=== PATIENT | female | born 1985 | race Caucasian/White ===

== ENCOUNTER 2017-07-06 12:06 | Day surgery (SDC) | payer OTHER, MEDICAID ==
[~2017-07-06 12:06] MED LIST: ATROPINE 1 MG/10 ML SYRINGE IV; DIPHENHYDRAMINE 50 MG INJ IV; EPHEDrine SULFATE 50 MG/5 ML SYG IV; FENTAnyl 50 MCG/ML VIAL IV; HYDROmorphONE (0.2 MG/ML) 10ML SYG IV; LABETALOL HCL 20MG INJ IV; MEPERIDINE 25 MG INJ IV; MIDAZOLAM 1 MG/ML 2 ML INJ IV; ONDANSETRON 4 MG INJ IV; OXYCODONE/ACETAMINOPHEN (5/325) TAB PO; hydrALAzine 20 MG INJ IV; morphine (1 MG/ML) 10ML SYRINGE IV
[2017-07-06] MEDS ORDERED: ROCURONIUM 50 MG INJ (14:25)
[2017-07-06] MEDS ORDERED: NEOSTIGMINE 3 MG/3 ML SYRINGE (14:25)
[2017-07-06] MEDS ORDERED: PROPOFOL 20 ML (14:25)
[2017-07-06] MEDS ORDERED: GLYCOPYRROLATE 1 MG INJ (14:25)
[2017-07-06] MEDS ORDERED: LIDOCAINE 2% (SDV) 5 ML INJ (14:25)
[2017-07-06] MEDS ORDERED: MIDAZOLAM 1 MG/ML 2 ML INJ (14:26)
[2017-07-06] MEDS ORDERED: FENTAnyl 50 MCG/ML VIAL (14:26)
[2017-07-06] MEDS ORDERED: ONDANSETRON 4 MG INJ (14:29)
[2017-07-06] MEDS ORDERED: CEFAZOLIN 1 GM INJ (14:54)
[2017-07-06] MEDS: BUPIVACAINE 0.5% (SDV) 30 ML INJ (15:31)
[2017-07-06] MEDS: OXYCODONE/ACETAMINOPHEN (5/325) TAB PO (16:48)
[2017-07-06] MEDS ORDERED: HYDROCODONE/APAP (5/325) TAB PO (17:47)
== END 2017-07-06 17:41 | disposition home or self-care (01) ==
LOC: SDS 12:06
DX: M67.432 Ganglion, left wrist (principal)
CPT/HCPCS: 25111

== ENCOUNTER 2018-06-07 11:42 | Emergency (ER) | payer OTHER ==
[2018-06-07 12:32] LABS: URINE BLOOD (Dip) POC 2+ (NEGATIVE); URINE GLUCOSE (Dip) POC Negative (NEGATIVE); URINE KETONES (Dip) POC Negative (NEGATIVE); URINE LEUKOCYTE EST (Dip) POC 2+ (NEGATIVE); URINE NITRITE (Dip) POC Negative (NEGATIVE); URINE TOTAL PROTEIN POC Trace (NEGATIVE)
== END 2018-06-07 13:00 | disposition home or self-care (01) ==
LOC: FTE 11:42
DX: N39.0 Urinary tract infection, site not specified (principal); R31.9 Hematuria, unspecified
CPT/HCPCS: 81003; 99283